=== PATIENT | male | born 1940 | race Caucasian/White ===

== ENCOUNTER 2019-04-17 07:37 | Day surgery (SDC) | payer OTHER ==
[~2019-04-17] VITALS: Ht 172.7 cm; Wt 79.5 kg
[~2019-04-17 07:37] MED LIST: ALLEGRA ALLERG180 MG PO; B Complex #11 EACH PO; BUDE10.22 INH; C Complex1000 MG PO; CARV25 PO; CHOL10002 PO; CLOP75 PO; Calcium Magnes1 EACH PO; DOXY100 PO; FINASTERIDE1 MG PO; Flomax0.4 MG PO; Flonase 0.05% N16 GM; Lipitor20 MG PO; SPIRIVA RESPIMAT4 GM INH; TOCO1000 PO
== END 2019-04-17 10:15 | disposition home or self-care (01) ==
LOC: ORSCSDS 07:37
PROVIDERS: Student in an Organized Health Care Education/Training Program
PROC: 0DBP8ZX Excision of Rectum, Via Natural or Artificial Opening Endoscopic, Diagnostic (ICD-10-PCS; principal; 2019-04-17 09:00)
PROC: 0DBM8ZX Excision of Descending Colon, Via Natural or Artificial Opening Endoscopic, Diagnostic (ICD-10-PCS; principal; 2019-04-17 09:00)
PROC: 0DBN8ZX Excision of Sigmoid Colon, Via Natural or Artificial Opening Endoscopic, Diagnostic (ICD-10-PCS; principal; 2019-04-17 09:00)
DX: Z12.11 Encounter for screening for malignant neoplasm of colon (principal); D12.4 Benign neoplasm of descending colon; K63.5 Polyp of colon; K62.1 Rectal polyp; K57.30 Diverticulosis of large intestine without perforation or abscess without bleeding; Z86.010 Personal history of colon polyps; Z80.0 Family history of malignant neoplasm of digestive organs; I10 Essential (primary) hypertension; G47.33 Obstructive sleep apnea (adult) (pediatric); J44.9 Chronic obstructive pulmonary disease, unspecified; Z86.73 Personal history of transient ischemic attack (TIA), and cerebral infarction without residual deficits; Z79.899 Other long term (current) drug therapy; Z87.891 Personal history of nicotine dependence
CPT/HCPCS: 88305; J2001; J2704; J7120